=== PATIENT | male | born 1965 | race Caucasian/White ===

== ENCOUNTER → 2017-01-24 | Outpatient (CLI) | payer OTHER ==
[~2017-01-24] MED LIST: FLOMAX 0.4 MG0.4 MG PO; HYDROCHLOROTHIA25 MG PO; MOBIC7.5 MG PO; NEURONTIN 400400 MG PO; OMEPRAZOLE20 MG PO; PRAVASTATIN SOD10 MG PO; VENTOLIN/PROVE0.5 ML INH; ZANAFLEX 4 MG TA4 MG PO; ZOFRAN ODT 4 MG4 MG PO
== END ==
LOC: LAB 10:18
DX: Z02.83 Encounter for blood-alcohol and blood-drug test (principal)
CPT/HCPCS: 36415

== ENCOUNTER 2021-11-21 11:12 | Inpatient (IN) | payer OTHER ==
[~2021-11-21] VITALS: Ht 175.3 cm; Wt 74.8 kg
[~2021-11-21 11:12] MED LIST changes: +ALDACTONE 25MG25 MG PO; +ASPIRIN EC81 MG PO; +AUGMENTIN 875-1 EACH PO; +CLOPIDOGREL75 MG PO; +CONSTULOSE10 GM/15 M PO; +COREG 25MG TAB25 MG PO; +INDERAL LA60 MG PO; +K-DUR TAB 20 M20 MEQ PO; +LACTULOSE20 GM/30 M PO; +LASIX TAB 20 MG20 MG PO; -NEURONTIN 400400 MG PO; +NEURONTIN300 MG PO; +OXACILLIN SODIUM2 GM INJ; +PANTOPRAZOLE SO40 MG PO; +POLYETHYLENE GL17 GM PO; +XIFAXAN 550 MG550 MG PO
[2021-11-21 12:13] LABS: HEMOGLOBIN 16.7 gm/dl (14.0-17.5); RED BLOOD COUNT 5.48 M/UL (4.20-5.50); WHITE BLOOD COUNT 15.3 K/UL (4.5-11.0)
[2021-11-21 12:34] LABS: BUN/CREATININE RATIO 30 (0-10)
[2021-11-22 04:31] LABS: HEMOGLOBIN 13.6 gm/dl (14.0-17.5); RED BLOOD COUNT 4.54 M/UL (4.20-5.50); WHITE BLOOD COUNT 9.6 K/UL (4.5-11.0)
[2021-11-22 05:09] LABS: BUN/CREATININE RATIO 31 (0-10)
--- NOTE | 2021-11-22 05:57 | NUR ---
AT ABOUT 0400, PATIENT STATED THAT HE WAS STEPPING OFF OF THE FLOOR TO GO OUTSIDE AND GET A BREATH OF FRESH AIR. WHEN ASKED IF HE WOULD BE RETURNING, STATED THAT HE HAD A MANSOOR THAT MIGHT BE COMING BY TO GET HIM. WHEN TOLD THAT PHYSICIANS WOULD WANT TO SEE HIM IN THE MORNING, HE SAID THAT HE WOULDN'T GO, AND HE WOULD BE BACK. AT 0555, STILL NO SIGN OF PATIENT RETURNING. SECURITY HAD BEEN CALLED AT AROUND [id number] TO SEARCH FOR HIM WITH NO SIGNS. ATTEMPTED TO CALL PATIENT'S NUMBER PER THE FACESHEET, WITH THE NUMBER BEING DISCONNECTED. AN ATTEMPT WAS MADE TO CALL THE LISTED PERSON TO NOTIFY, WITH IT GOING TO VOICEMAIL.
--- NOTE | 2021-11-22 06:18 | NUR ---
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
== END 2021-11-22 04:10 | disposition home or self-care (01) | DRG 247 ==
LOC: ER1 11:12 → CDU 14:09 → PROG CARE 18:18
PROVIDERS: Physician Assistant; Physician Assistant Medical; ADMIT Internal Medicine
PROC: B24BZZ4 Ultrasonography of Heart with Aorta, Transesophageal (ICD-10-PCS; principal; 2021-11-21)
PROC: 027035Z Dilation of Coronary Artery, One Artery with Two Drug-eluting Intraluminal Devices, Percutaneous Approach (ICD-10-PCS; 2021-11-21)
PROC: 02C03ZZ Extirpation of Matter from Coronary Artery, One Artery, Percutaneous Approach (ICD-10-PCS; 2021-11-21)
PROC: 4A023N7 Measurement of Cardiac Sampling and Pressure, Left Heart, Percutaneous Approach (ICD-10-PCS; 2021-11-21)
PROC: B2111ZZ Fluoroscopy of Multiple Coronary Arteries using Low Osmolar Contrast (ICD-10-PCS; 2021-11-21)
DX: I21.4 Non-ST elevation (NSTEMI) myocardial infarction (principal); I47.2 Ventricular tachycardia; I25.10 Atherosclerotic heart disease of native coronary artery without angina pectoris; M06.9 Rheumatoid arthritis, unspecified; K74.60 Unspecified cirrhosis of liver; Z20.822 Contact with and (suspected) exposure to COVID-19; E78.5 Hyperlipidemia, unspecified; F12.10 Cannabis abuse, uncomplicated; I10 Essential (primary) hypertension; K21.9 Gastro-esophageal reflux disease without esophagitis; F17.210 Nicotine dependence, cigarettes, uncomplicated; Z95.1 Presence of aortocoronary bypass graft; Z98.890 Other specified postprocedural states; Z86.14 Personal history of Methicillin resistant Staphylococcus aureus infection; Z95.4 Presence of other heart-valve replacement; Z82.49 Family history of ischemic heart disease and other diseases of the circulatory system
CPT/HCPCS: ECHO; 36415; 71045; 80048; 80053; 82550; 82553; 83735; 83874; 83880; 84439; 84443; 84484; 85025; 85610; 85730; 92973; 93005; 93306; 99152; 99153; 99285; C1725; C1757; C1769; C1874; C1887; C9600; J0461; J0583; J1644; J2250; J2405; J3010; J7040; Q9965; U0002

== ENCOUNTER 2022-04-24 13:00 | Emergency (ER) | payer OTHER ==
[2022-04-24 14:13] LABS: HEMOGLOBIN 14.5 gm/dl (14.0-17.5); RED BLOOD COUNT 4.95 M/UL (4.20-5.50); WHITE BLOOD COUNT 10.5 K/UL (4.5-11.0)
[2022-04-24 14:32] LABS: BUN/CREATININE RATIO 17 (0-10)
[2022-04-24] MEDS ORDERED: CEPHALEXIN500 MG PO (15:18)
[2022-04-24] MEDS ORDERED: IBUPROFEN600 MG PO (15:20)
== END 2022-04-24 15:50 | disposition home or self-care (01) ==
LOC: ER1 13:00
PROVIDERS: Emergency Medicine
DX: M79.642 Pain in left hand (principal); I25.10 Atherosclerotic heart disease of native coronary artery without angina pectoris; F17.200 Nicotine dependence, unspecified, uncomplicated
CPT/HCPCS: 73130; 80053; 84550; 85025; 85652; 86140; 99283

== ENCOUNTER 2022-06-26 12:16 | Inpatient (IN) | payer OTHER ==
[~2022-06-26] VITALS: Ht 175.3 cm; Wt 65.8 kg
[~2022-06-26 12:16] MED LIST changes: +CEPHALEXIN500 MG PO; +IBUPROFEN600 MG PO
[2022-06-26 13:19] LABS: HEMOGLOBIN 14.4 gm/dl (14.0-17.5); RED BLOOD COUNT 4.85 M/UL (4.20-5.50); WHITE BLOOD COUNT 15.3 K/UL (4.5-11.0)
[2022-06-26 13:55] LABS: BUN/CREATININE RATIO 32 (0-10)
--- NOTE | 2022-06-26 17:08 | NUR ---
PT REFUSING TO WEAR HEART MONITOR AT THIS TIME. PT VERY ANIMATED AND FLOPPING ARMS AND THROWING MONITOR. MD AWARE AND BEEN NOTIFIED THAT PT IS UNABLE TO KEEP TELE MONITOR ON AT THIS TIME.
--- NOTE | 2022-06-27 00:16 | NUR ---
PT IS THRASHING AROUND AND MAKING IT IMPOSSIBLE FOR THE RT TO OBTAIN AN EKG. PATIENT IS THROWING AND REMOVING LEADS.
[2022-06-27 01:26] LABS: HEMOGLOBIN 13.7 gm/dl (14.0-17.5); RED BLOOD COUNT 4.63 M/UL (4.20-5.50); WHITE BLOOD COUNT 16.2 K/UL (4.5-11.0)
[2022-06-27 02:06] LABS: BUN/CREATININE RATIO 37 (0-10)
--- NOTE | 2022-06-27 07:50 | NUR ---
PT REFUSING TO KEEP LEADS ON. MD AWARE OF PT BEHAVIOR.
[2022-06-28 07:33] LABS: HEMOGLOBIN 13.2 gm/dl (14.0-17.5); RED BLOOD COUNT 4.59 M/UL (4.20-5.50)
[2022-06-28 07:42] LABS: WHITE BLOOD COUNT 11.1 K/UL (4.5-11.0)
[2022-06-28 07:59] LABS: BUN/CREATININE RATIO 27 (0-10)
[2022-06-28] MEDS ORDERED: PROTONIX 40 MG40 M1 PO (08:34)
[2022-06-28] MEDS ORDERED: FLOMAX 0.4 MG0.4 MG PO (08:34)
[2022-06-28] MEDS ORDERED: K-PHOS NEUTRAL250 MG PO (08:34)
[2022-06-28] MEDS ORDERED: LOPRESSOR 25 MG25 MG PO (08:34)
[2022-06-28] MEDS ORDERED: ASPIRIN EC81 MG PO (08:34)
[2022-06-28] MEDS ORDERED: TAB-A-VITE TA400 MC1 PO (08:34)
[2022-06-28] MEDS ORDERED: CLOPIDOGREL75 MG PO (08:34)
[2022-06-28] MEDS ORDERED: VITAMIN B-1100 M1 PO (08:34)
== END 2022-06-28 09:58 | disposition short-term general hospital (02) | DRG 917 ==
LOC: ER1 12:16 → M/S 14:17 → CDU 14:17 → M/S 15:40
PROVIDERS: Emergency Medicine; Internal Medicine; Physician Assistant Medical; ADMIT Internal Medicine
DX: T43.622A Poisoning by amphetamines, intentional self-harm, initial encounter (principal); G92.9 Unspecified toxic encephalopathy; M62.82 Rhabdomyolysis; Z20.822 Contact with and (suspected) exposure to COVID-19; M06.9 Rheumatoid arthritis, unspecified; F12.10 Cannabis abuse, uncomplicated; F19.10 Other psychoactive substance abuse, uncomplicated; F10.10 Alcohol abuse, uncomplicated; F41.9 Anxiety disorder, unspecified; R45.1 Restlessness and agitation; E83.39 Other disorders of phosphorus metabolism; I10 Essential (primary) hypertension; K21.9 Gastro-esophageal reflux disease without esophagitis; I25.10 Atherosclerotic heart disease of native coronary artery without angina pectoris; Z95.5 Presence of coronary angioplasty implant and graft; Z79.82 Long term (current) use of aspirin; Z82.0 Family history of epilepsy and other diseases of the nervous system; Z98.890 Other specified postprocedural states
CPT/HCPCS: 36415; 70450; 71045; 80053; 80307; 81001; 82140; 82550; 82553; 83605; 83735; 84100; 84439; 84443; 84484; 85025; 85027; 85379; 87040; 93005; 99285; G0378; G0480; J1650